=== PATIENT | female | born 1965 | race Caucasian/White ===

== ENCOUNTER 2017-06-16 12:02 | Emergency (ER) | payer BC ==
[~2017-06-16] VITALS: Ht 162.6 cm; Wt 77.2 kg
[2017-06-16 13:30] LABS: HEMATOCRIT 35.4 % (36.0-46.0); HEMOGLOBIN 11.7 G/DL (11.9-15.5); MCHC 33.1 G/DL (30.0-36.0); MCV 87.8 FL (83-99); PLATELET COUNT 575 K/uL (156-360); RBC DIS.WIDTH-CV 14.9 % (11.8-14.6); RBC DIS.WIDTH-SD 47.9 % (39-53); RED BLOOD COUNT 4.03 M/uL (3.80-5.20); WHITE BLOOD COUNT 6.1 K/uL (4.1-10.2)
[2017-06-16 13:38] LABS: CHLORIDE 106 mEq/L (99-109); POTASSIUM 4.3 mEq/L (3.7-5.4); SODIUM 142 mEq/L (136-147)
[2017-06-16 13:39] LABS: GLUCOSE 99 mg/dL (70-99)
[2017-06-16 13:43] LABS: CREATININE 0.8 mg/dL (0.6-1.3); GFR ESTIMATE (CALCULATED) > 59 mL/min/
[2017-06-16 13:44] LABS: UREA NITROGEN (BUN) 11 mg/dL (9-23)
[2017-06-16 13:50] LABS: TROP-I INTERPRETATION NEGATIVE; TROPONIN-I < 0.01 ng/mL (0.0-0.30)
[2017-06-16 15:44] LABS: APPEARANCE CLEAR ((CLEAR)); BILIRUBIN NEGATIVE; BLOOD NEGATIVE; COLOR YELLOW ((YELLOW)); GLUCOSE (STRIP) NEGATIVE; KETONES NEGATIVE; LEUKOCYTES NEGATIVE; NITRITE NEGATIVE; PROTEIN (STRIP) NEGATIVE; UCUL ADDED? NO; UROBILINOGEN 0.2 MG/DL (0.2-1.0)
[2017-06-16 16:19] LABS: D-DIMER ELISA < 150.00 ng/mLDDU (<230)
[2017-06-16 16:36] LABS: TROP-I INTERPRETATION NEGATIVE; TROPONIN-I < 0.01 ng/mL (0.0-0.30)
[2017-06-16 17:51] VITALS: BP 152/92
== END 2017-06-16 17:53 | disposition home or self-care (01) ==
LOC: EME 12:02 → RME 12:02
PROVIDERS: Physician Assistant
DX: R07.89 Other chest pain (principal); R51 Headache; E10.9 Type 1 diabetes mellitus without complications; I10 Essential (primary) hypertension; E78.5 Hyperlipidemia, unspecified; J45.909 Unspecified asthma, uncomplicated; I45.6 Pre-excitation syndrome; Z79.82 Long term (current) use of aspirin
CPT/HCPCS: 70450; 71046; 80048; 81003; 84484; 85027; 85379; 93005; 99281; 99285

== ENCOUNTER 2017-12-06 10:32 | Emergency (ER) | payer BC ==
[~2017-12-06] VITALS: Ht 165.1 cm; Wt 78.3 kg
[2017-12-06] MEDS ORDERED: NORCO 5/3251 TABLET PO (12:38)
[2017-12-06 14:07] VITALS: BP 139/86
== END 2017-12-06 13:39 | disposition home or self-care (01) ==
LOC: EME 10:32
DX: S83.92XA Sprain of unspecified site of left knee, initial encounter (principal); X50.1XXA Overexertion from prolonged static or awkward postures, initial encounter; W18.39XA Other fall on same level, initial encounter; Z87.891 Personal history of nicotine dependence
CPT/HCPCS: 73564; 99281; 99285; J3010